=== PATIENT | female | born 1985 | race African-American/Black ===

== ENCOUNTER 2019-05-13 15:33 | Emergency (ER) | payer MEDICAID ==
[~2019-05-13] VITALS: Ht 167.6 cm; Wt 123.0 kg
[2019-05-13 18:11] VITALS: BP 108/69
== END 2019-05-13 21:00 | disposition left against medical advice (07) ==
LOC: ER 15:33
DX: R07.9 Chest pain, unspecified (principal); Z53.21 Procedure and treatment not carried out due to patient leaving prior to being seen by health care provider